=== PATIENT | female | born 1990 | race Caucasian/White ===

== ENCOUNTER 2017-06-07 09:52 | Emergency (ER) | payer OTHER, MEDICAID ==
[2017-06-07] MEDS: IBUPROFEN 600 MG TAB PO (10:28)
== END 2017-06-07 11:13 | disposition home or self-care (01) ==
LOC: FTE 09:52
DX: J02.0 Streptococcal pharyngitis (principal)
CPT/HCPCS: 87400; 87880; 99283

== ENCOUNTER 2018-07-16 20:06 | Emergency (ER) | payer OTHER | END 2018-07-16 21:07 | disposition home or self-care (01) | LOC: E/R 20:06 | DX: J03.90 Acute tonsillitis, unspecified (principal) | CPT/HCPCS: 99283; Z7502 ==